=== PATIENT | male | born 1995 | race African-American/Black ===

== ENCOUNTER 2020-08-22 01:02 | Emergency (ER) | payer MEDICAID ==
[~2020-08-22] VITALS: Ht 180.3 cm; Wt 63.5 kg
[2020-08-22 01:37] VITALS: BP 130/69
--- NOTE | 2020-08-22 01:45 | NUR ---
PT TO ER BED 12 C/O OF ABD PAIN X1 DAY AGO. PT AAOX4, VSS, BREATHING EVEN AND UNLABORED. PT STATES THAT HE "ATE A LARGE PIZZA YESTERDAY AND TWO CHEESEBURGERS TODAY". PT DENIES ANY NV, DENIES ANY STRAINING WHEN HAVING A BOWEL MOVMENT OR ANY BLOOD.
[2020-08-22] MEDS ORDERED: LIDOCAINE VISCOUS 2% UD 15 ML UDC MM ONE (02:00)
[2020-08-22] MEDS ORDERED: MAG HYDROX/AL HYDROX/SIMETH 30 ML UDC PO ONE (02:00)
[2020-08-22] MEDS ORDERED: LIDOCAINE VISCOUS 2% UD 15 ML UDC ONE (02:02)
[2020-08-22] MEDS ORDERED: MAG HYDROX/AL HYDROX/SIMETH 30 ML UDC ONE (02:02)
--- NOTE | 2020-08-22 02:26 | NUR ---
Patient discharged to home in stable condition. Written and verbal after care instructions given. Patient verbalizes understanding of instruction. Pt ambulatory w/ steady gait
== END 2020-08-22 02:27 | disposition home or self-care (01) ==
LOC: ER 01:02
DX: K21.9 Gastro-esophageal reflux disease without esophagitis (principal); Z60.2 Problems related to living alone